=== PATIENT | male | born 2000 | race Hispanic/Latino ===

== ENCOUNTER 2025-08-28 13:25 | Emergency (ER) | payer BC ==
[~2025-08-28] VITALS: Ht 188 cm; Wt 102.1 kg
--- NOTE | 2025-08-28 13:43 | ERN ---
ED Note History of Present Illness Stated Complaint: SHOULDER Chief Complaint: Shoulder Injury/Pain Time Seen by MD: 13:32 Dictation: PATIENT IS A 25-YEAR-OLD MALE COMING IN TODAY WITH LEFT SHOULDER PAIN THAT WAS ONSET WAS WEDNESDAY. HE STATES HE WAS PLAYING IN BASKETBALL WHEN HE FELT A POP AND HAD DECREASED RANGE OF MOTION TEMPORARILY. HE SAID IT WENT BACK INTO PLACE, THAT THIS IS HAPPENED FOR OTHER TIMES. HE STATES HE HAS NEVER BEEN TO AN ORTHOPEDIC SURGEON. CURRENTLY THERE WAS NO ANTERIOR FULLNESS RANGE OF MOTION IS GROSSLY INTACT. DISTAL NEUROVASCULAR INTACT Allergies: Coded Allergies: No Known Drug Allergies (Unverified Allergy, Unknown, 08/28/25) Past Medical History Past Medical History: No Pertinent History Surgical History: None RN Note Reviewed/Agreed w/PFSH: Yes Review of System Dictation CONSTITUTIONAL: NEGATIVE EXCEPT FOR HPI HEAD/FACE: NEGATIVE EXCEPT FOR HPI EENT: NEGATIVE EXCEPT FOR HPI RESPIRATORY: NEGATIVE EXCEPT FOR HPI GASTROINTESTINAL/ABDOMINAL: NEGATIVE EXCEPT FOR HPI GENITOURINARY: NEGATIVE EXCEPT FOR HPI MUSCULOSKELETAL: NEGATIVE EXCEPT FOR HPI LEFT SHOULDER PAIN INTEGUMENTARY: NEGATIVE EXCEPT FOR HPI NEUROLOGICAL/PSYCH: NEGATIVE EXCEPT FOR HPI HEMATOLOGIC/LYMPHATIC: NEGATIVE EXCEPT FOR HPI ALL SYSTEMS NEGATIVE, EXCEPT NOTED ABOVE. 13 POINT REVIEW OF SYSTEMS ASSESSED AND ALL NEGATIVE EXCEPT FOR ABOVE. Initial Vital Sign VS Vital Signs Date Time Temp Pulse Resp B/P (MAP) Pulse Ox O2 Delivery O2 Flow Rate FiO2 08/28/25 13:28 97.5 79 16 156/93 100 Room Air 0 Physical Exam Dictation VITAL SIGNS REVIEWED GENERAL APPEARANCE: ALERT, ORIENTED X 3, NO ACUTE DISTRESS, WELL DEVELOPED, NOURISHED. HEAD AND FACE: NON-TRAUMATIC. EYES: PERRL, PINK CONJUNCTIVAS, EYELID NO TRAUMA, ANTERIOR CHAMBER WITH ARCUS SENILIS. EARS: PINNAS INTACT AND NO SIGNS OF TRAUMA OR ERYTHEMA EAR CANALS CLEAR AND NO DISCHARGE TM NO ERYTHEMA NOSE: NO DISCHARGE, NO BLEEDING. OROPHARYNX: MOUTH NORMAL, TONGUE PINK, PHARYNX CLEAR,NO ERYTHEMA, TONSILS NO EXUDATES, NO ABSCESSES NOTED, MUCOUS MEMBRANE MOIST NECK: SUPPLE, NON-TENDER, NO THYROMEGALY, NO MASSES, NO JVD, NO BRUITS BREAST:DEFERRED CHEST:NO TENDERNESS, NO CREPITUS, NO PARADOXICAL MOVEMENT, NO RETRACTIONS LUNGS:CLEAR, WELL-VENTILATED, SYMMETRIC, NO RALES, NO WHEEZING, NO RHONCHI, NO STRIDOR, GOOD BREATH SOUNDS BILATERALLY HEART: REGULAR RATE, REGULAR RHYTHM, NO MURMUR, NO GALLOPS VASCULAR: NO PERIPHERAL EDEMA, ABDOMEN: SOFT, POSITIVE BOWEL SOUNDS, NONDISTENDED, NO GUARDING, NONTENDER, NO REBOUND, NO MASSES NO HEPATOMEGALY, NO SPLENOMEGALY, NO TIDWELL'S SIGN, NO HERNIAS. RECTAL: DEFERRED GENITAL: DEFERRED NEUROLOGICAL: NORMAL SPEECH, MOTOR FUNCTION INTACT, SENSORY FUNCTION INTACT MUSCULOSKELETAL: NECK NONTENDER, FULL RANGE OF MOTION, BACK NONTENDER, FULL RANGE OF MOTION, EXTREMITIES: NONTENDER, FULL RANGE OF MOTION DECREASED RANGE OF MOTION SECONDARY TO PAIN, NO ANTERIOR FULLNESS SKIN: COLOR PINK, DRY, NO TURGOR, NO RASH, NO LACERATIONS, NO ABRASIONS, NO CONTUSIONS. LYMPHATIC: DEFERRED Results (Laboratory/Radiology) Laboratory/Radiology 1425/LEFT SHOULDER X-RAY DEMONSTRATES NO FRACTURE OR DISLOCATION Labs Reviewed?: Yes ED Course ED Course Orders Procedure Category Date Status Time Shoulder Comp 2+Vws Lt RAD 08/28/25 Taken 13:41 Vital Signs Date Time Temp Pulse Resp B/P (MAP) Pulse Ox O2 Delivery O2 Flow Rate FiO2 08/28/25 13:28 97.5 79 16 156/93 100 Room Air 0 Medical Decision Making [facility] 1425/MEDICAL DISCHARGE MAKING BASED ON X-RAY OF LEFT SHOULDER TO RULE OUT FR ACTURE VERSUS DISLOCATION X-RAY UNREMARKABLE PATIENT IS STRONGLY ADVISED TO STOP SPORTS AND FOLLOW UP WITH DR. KATIE WILLS FOR FREQUENT DISLOCATION OF LEFT SHOULDER. DX & DISP Disposition: Discharge Departure Impression: Primary Impression: Acute pain of left shoulder Additional Impression: Hx of closed dislocation of shoulder Condition: Stable Scripts Ibuprofen (Ibuprofen 800 mg Tab) 800 Mg Tab 800 MG PO Q8H PRN for fever or pain, #30 TAB 0 Refills Prov: MARCO A CHANG NUCLEAR POWERPLANT MECHANIC 08/28/25 Additional Instructions: FOLLOW-UP WITH PRIMARY CARE PROVIDER IN 1 TO 2 DAYS. TAKE MEDICATIONS DIRECTED HERE IN THE EMERGENCY ROOM. OKAY TO CONTINUE HOME MEDICATIONS UNLESS OTHERWISE DISCUSSED DURING YOUR VISIT IN THE EMERGENCY ROOM TODAY. RETURN TO YOUR NEAREST EMERGENCY ROOM IF SYMPTOMS WORSEN OR IF THERE IS NO IMPROVEMENT. CALL 911 IF YOU NEED IMMEDIATE ASSISTANCE. TAKE TYLENOL OR MOTRIN [id number] NEEDED AND IF NO CONTRAINDICATIONS ARE PRESENT. INCREASE ORAL HYDRATION. A WOUND CULTURE OR URINE CULTURE WAS ORDERED HERE IN THE EMERGENCY ROOM DEPARTMENT PLEASE FOLLOW-UP WITH PRIMARY CARE PROVIDER AND ADVISE THEM TO GET REPEAT PORTS FROM OUR FACILITY. IF YOU HAD ANY AKI WRAP/SPLINTS THAT WERE APPLIED HERE, PLEASE DO NOT REMOVE THEM UNTIL YOU SEE YOUR PRIMARY CARE OR SPECIALTY. NO SPORTS OR PE UNTIL CLEARED BY ORTHOPEDIC SURGEON, CALL TODAY FOR AN APPOINTMENT. TAKE IBUPROFEN NEEDED FOR PAIN. Referrals: KATIE WILLS MD Time of Disposition: 14:24 I have reviewed the case, and I agree with, Diagnosis and Plan MARCO A CHANG NUCLEAR POWERPLANT MECHANIC Aug 28, 2025 13:43
[2025-08-28] MEDS ORDERED: IBUP-2077 PO (14:25)
[2025-08-28 14:40] VITALS: BP 131/84; PULSE 75; RESP 16; TEMP 97.6; O2SAT 10
--- NOTE | 2025-08-28 15:11 | HMCIMG ---
EXAM: CR left Shoulder, 2 View. CLINICAL HISTORY: LEFT SHOULDER PAIN WHILE PLAYING BASKETBALL WEDNESDAY. HISTORY OF DISLOCATION COMPARISON: None provided. FINDINGS: BONES: No acute fracture or aggressive appearing osseous lesion. JOINTS: No dislocation. The joint spaces are normal. SOFT TISSUES: The soft tissues are unremarkable. IMPRESSION: No acute abnormality evident on examination of the left shoulder. No acute fracture or dislocation. /[place]
== END 2025-08-28 14:39 | disposition home or self-care (01) ==
LOC: EDH 13:25
DX: M25.512 Pain in left shoulder (principal); X58.XXXA Exposure to other specified factors, initial encounter; Y93.67 Activity, basketball; Y92.89 Other specified places as the place of occurrence of the external cause; Y99.8 Other external cause status
CPT/HCPCS: 73030; 99283